=== PATIENT | male | born 1960 | race Two or more races ===

== ENCOUNTER 2021-03-20 05:17 | Day surgery (SDC) | payer OTHER ==
[2021-03-20] MEDS ORDERED: PERCOCET 5-3251 EACH PO (07:46)
[2021-03-20] MEDS ORDERED: COLACE100 MG PO (07:46)
== END 2021-03-20 11:45 | disposition home or self-care (01) ==
LOC: CIR.AMB 05:17
PROVIDERS: ATTEND Surgery
DX: K64.4 Residual hemorrhoidal skin tags (principal); K64.8 Other hemorrhoids; Z20.822 Contact with and (suspected) exposure to COVID-19